=== PATIENT | male | born 1965 | race Caucasian/White ===

== ENCOUNTER 2016-10-16 13:04 | Inpatient (IN) | payer OTHER ==
[~2016-10-16] VITALS: Ht 182.9 cm; Wt 85.0 kg
--- NOTE | 2016-10-18 08:59 | NUR ---
0800: PT VITALS SIGNS SHOWED HYPERTESION WITH BP OF 163/115 HEART RATE WAS BRADYCARDIC AT RATE OF 54. MORNING MEDICATION GIVEN AND BLOOD PRESSURE WAS RECHECKED AT 0900. BP IS 150/99 AND HEART RATE 51.
--- NOTE | 2016-10-19 11:48 | NUR ---
1030: DISCHARGE INSTRUCTIONS GIVEN TO PATIENT/FAMILY ON HTN, LOW SODIUM DIET, AND FOLLOW UP APPOINTMENTS. PT VERBALIZED AGREEMENT. INSTRUCTIONS GIVEN ON NEW MEDICATIONS (COREG, NORVASC, AND HYDRALAZINE) AND THE BENEFITS OF MEDS. PT INTERRUPTED AND STATED "I HAVE HEARD THIS BEFORE AND THOSE MEDICATIONS ARE NOT GOOD FOR THE BODY". REINFORCED INSTRUCTIONS WITH PATIENT/CAREGIVER THE RISK FACTORS OF NOT BEING COMPLIANT WITH MEDS. PT CONTINUES TO DENY THE BENEFITS OF MEDICATIONS. PT'S SISTER (CORINA CRUZ) STATES THAT SHE WILL ASSIST PATIENT WITH DISCHARGE INSTRUCTIONS. 1045: REPORTED TO DR. OKEEFE B/P 155/102 AND REFUSING TO STAY IN THE HOSPITAL. NO NEW ORDERS NOTED AT THIS TIME. 1115: PT TRANSPORTED OFF FLOOR VIA WHEELCHAIR WITH PERSONAL ITEMS. FAMILY AT SIDE.
== END 2016-10-19 11:15 | disposition home or self-care (01) | DRG 291 ==
LOC: ICU 13:04
PROVIDERS: ADMIT Internal Medicine
DX: I13.0 Hypertensive heart and chronic kidney disease with heart failure and stage 1 through stage 4 chronic kidney disease, or unspecified chronic kidney disease (principal); I50.33 Acute on chronic diastolic (congestive) heart failure; N18.4 Chronic kidney disease, stage 4 (severe); I16.9 Hypertensive crisis, unspecified; N17.9 Acute kidney failure, unspecified; G47.33 Obstructive sleep apnea (adult) (pediatric); Z86.718 Personal history of other venous thrombosis and embolism; E03.9 Hypothyroidism, unspecified; Z82.49 Family history of ischemic heart disease and other diseases of the circulatory system; Z84.89 Family history of other specified conditions; Z88.8 Allergy status to other drugs, medicaments and biological substances; K21.9 Gastro-esophageal reflux disease without esophagitis; Z91.14 Patient's other noncompliance with medication regimen; R74.8 Abnormal levels of other serum enzymes
CPT/HCPCS: 93306; 97162-GP; 97166; J1644